=== PATIENT | female | born 1965 | race Caucasian/White ===

== ENCOUNTER 2019-05-20 17:22 | Emergency (ER) | payer SELFPAY ==
[~2019-05-20] VITALS: Ht 162.6 cm; Wt 82.3 kg
[~2019-05-20 17:22] MED LIST: ALBU18HF INHALATION; CEPH-443 PO; TIOT18CA INHALATION
[2019-05-20 17:41] VITALS: Ht 162.6 cm; Wt 82.3 kg
[2019-05-20 18:10] VITALS: BP 123/85; PULSE 81; RESP 16
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
== END 2019-05-20 18:11 | disposition home or self-care (01) ==
LOC: E/R 17:22
DX: J44.1 Chronic obstructive pulmonary disease with (acute) exacerbation (principal); Z87.891 Personal history of nicotine dependence
CPT/HCPCS: 93005

== ENCOUNTER 2019-05-31 20:48 | Emergency (ER) | payer MEDICARE, MEDICAID ==
[~2019-05-31] VITALS: Ht 170.2 cm; Wt 79.0 kg
[2019-05-31 20:52] VITALS: BP 132/95; PULSE 99; RESP 16; Ht 170.2 cm; Wt 79.0 kg
== END 2019-05-31 22:08 | disposition home or self-care (01) ==
LOC: FTE 20:48
DX: R31.9 Hematuria, unspecified (principal); J44.9 Chronic obstructive pulmonary disease, unspecified
CPT/HCPCS: 81003; 87086; 99283

== ENCOUNTER 2019-06-13 16:05 | Emergency (ER) | payer MEDICARE, OTHER ==
[~2019-06-13] VITALS: Ht 170.2 cm; Wt 74.9 kg
[~2019-06-13 16:05] MED LIST changes: +PRED20TA PO
[2019-06-13 16:34] VITALS: BP 127/90; PULSE 94; RESP 18; Ht 170.2 cm; Wt 74.9 kg
== END 2019-06-13 17:50 | disposition home or self-care (01) ==
LOC: E/R 16:05
DX: J44.1 Chronic obstructive pulmonary disease with (acute) exacerbation (principal); F17.210 Nicotine dependence, cigarettes, uncomplicated
CPT/HCPCS: 99283